=== PATIENT | female | born 1970 | race Caucasian/White ===

== ENCOUNTER 2023-06-18 19:25 | Emergency (ER) | payer OTHER ==
[~2023-06-18] VITALS: Ht 160 cm; Wt 155.6 kg
[2023-06-18 20:18] VITALS: BP_SYST 151; PULSE 92; RESP 20; TEMP 97; O2SAT 99
[2023-06-18 23:39] LABS: BASOPHILS % (AUTO) 0.3 % (0.0-2.0); EOSINOPHILS # (AUTO) 0.1 K/uL (0.0-0.4); EOSINOPHILS % (AUTO) 0.5 % (0.0-4.0); HEMATOCRIT 43.3 % (36-48); HEMOGLOBIN 13.9 g/dL (12.0-16.0); LYMPHOCYTES # (AUTO) 2.5 K/uL (1.0-5.5); LYMPHOCYTES % (AUTO) 17.5 % (20.5-51.5); MEAN CORPUSCULAR HEMOGLOBIN 29 pg (27-31); MEAN CORPUSCULAR HGB CONC 32 % (32-36); MEAN CORPUSCULAR VOLUME 90 fL (79.0-98.0); MONOCYTES # (AUTO) 1.2 K/uL (0.0-1.0); MONOCYTES % (AUTO) 8.7 % (1.7-9.3); NEUTROPHILS # (AUTO) 10.5 K/uL (1.8-7.7); PLATELET COUNT (AUTO) 260 K/uL (130-430); RED CELL DISTRIBUTION WIDTH 13.5 % (9.0-15.0); WHITE BLOOD COUNT (AUTO) 14.4 K/uL (4.8-10.8)
[2023-06-18 23:56] LABS: CALCIUM 8.8 mg/dL (8.4-11.0); CREATININE 0.91 mg/dL (0.55-1.30); POTASSIUM 3.8 mmol/L (3.5-5.1)
[2023-06-19 00:01] LABS: ALBUMIN 2.8 g/dL (3.4-4.8); TOTAL PROTEIN, SERUM 6.8 g/dL (6.4-8.3)
[2023-06-19 00:14] LABS: BILIRUBIN,URINE NEGATIVE (NEGATIVE); CLARITY/URINE CLEAR (CLEAR); COLOR,URINE YELLOW (YELLOW); GLUCOSE,URINE NEGATIVE (NEGATIVE); KETONES,URINE NEGATIVE (NEGATIVE); LEUKOCYTE ESTERASE ,URINE TRACE (NEGATIVE); NITRITE, URINE POSITIVE (NEGATIVE); PROTEIN URINE TRACE (NEGATIVE); UROBILINOGEN,URINE 0.2 (0.2-1.0)
[2023-06-19 00:17] LABS: BLOOD, URINE TRACE (NEGATIVE)
[2023-06-19] MEDS ORDERED: ceFAZolin SODIUM 1 GM VIAL ONE (00:26)
[2023-06-19] MEDS ORDERED: CEFU250T85 PO (00:30)
[2023-06-19] MEDS ORDERED: ceFAZolin SODIUM 2 GM VIAL IM ONE (00:30)
[2023-06-19 00:41] LABS: BACTERIA,URINE MANY /HPF (None Seen)
[2023-06-21] MEDS ORDERED: LEVO750T64 PO (17:25)
== END 2023-06-19 00:35 | disposition left against medical advice (07) ==
LOC: SED 19:25
DX: L03.115 Cellulitis of right lower limb (principal); R22.41 Localized swelling, mass and lump, right lower limb; E11.9 Type 2 diabetes mellitus without complications; Z79.899 Other long term (current) drug therapy
CPT/HCPCS: 99285; 93971; 80053; 81001; 85025; 87040; 87086; 36415; 83605; 81000; 96372; 81015; J0690